=== PATIENT | male | born 1955 | race Caucasian/White ===

== ENCOUNTER 2023-02-25 09:57 | Emergency (ER) | payer MEDICARE ==
[~2023-02-25] VITALS: Ht 182.9 cm; Wt 81.6 kg
[2023-02-25 09:57] VITALS: BP_SYST 155; PULSE 67; RESP 18; TEMP 96; O2SAT 99
[2023-02-25] MEDS ORDERED: PROCHLORPERAZINE EDISYLATE 10 MG/2 ML VIAL IM ONE (10:15)
[2023-02-25] MEDS ORDERED: KETOROLAC TROMETHAMINE 60 MG/2 ML VIAL IM ONE (10:15)
[2023-02-25] MEDS ORDERED: KETOROLAC TROMETHAMINE 30 MG VIAL IVP ONE (10:30)
[2023-02-25] MEDS ORDERED: PROCHLORPERAZINE EDISYLATE 10 MG/2 ML VIAL IVP ONE (10:30)
[2023-02-25] MEDS ORDERED: RIZA-4 PO (11:08)
[2023-02-25 11:30] VITALS: BP_SYST 140; PULSE 56; RESP 17; TEMP 97.1; O2SAT 96
== END 2023-02-25 11:31 | disposition home or self-care (01) ==
LOC: SED 09:57
DX: G43.909 Migraine, unspecified, not intractable, without status migrainosus (principal); R11.10 Vomiting, unspecified; Z79.899 Other long term (current) drug therapy
CPT/HCPCS: 99285; 96374; 70450; 96375; 76376; J1885; J0780

== ENCOUNTER 2023-05-02 05:59 | Emergency (ER) | payer MEDICARE, OTHER ==
[~2023-05-02] VITALS: Ht 182.9 cm; Wt 77.1 kg
[~2023-05-02 05:59] MED LIST: RIZA-4 PO
[2023-05-02 06:09] VITALS: BP_SYST 146; PULSE 76; RESP 22; TEMP 98.1; O2SAT 97
[2023-05-02 07:17] LABS: BASOPHILS % (AUTO) 0.4 % (0.0-2.0); EOSINOPHILS # (AUTO) 0.3 K/uL (0.0-0.4); HEMATOCRIT 42.1 % (36-54); HEMOGLOBIN 14.4 g/dL (14.0-18.0); LYMPHOCYTES # (AUTO) 2.4 K/uL (1.0-5.5); LYMPHOCYTES % (AUTO) 17.5 % (20.5-51.5); MEAN CORPUSCULAR HEMOGLOBIN 32 pg (27-31); MEAN CORPUSCULAR HGB CONC 34 % (32-36); MEAN CORPUSCULAR VOLUME 93 fL (79.0-98.0); MONOCYTES # (AUTO) 1.2 K/uL (0.0-1.0); MONOCYTES % (AUTO) 8.9 % (1.7-9.3); NEUTROPHILS # (AUTO) 9.8 K/uL (1.8-7.7); NEUTROPHILS % (AUTO) 71.2 % (40.0-70.0); PLATELET COUNT (AUTO) 328 K/uL (130-430); RED BLOOD CELL COUNT(AUTO) 4.54 MIL/uL (4.2-6.2); RED CELL DISTRIBUTION WIDTH 13.7 % (9.0-15.0); WHITE BLOOD COUNT (AUTO) 13.8 K/uL (4.8-10.8)
[2023-05-02 07:34] LABS: ALANINE AMINOTRANSFERASE 22 U/L (12-78); ALBUMIN 3.5 g/dL (3.4-4.8); ANION GAP 8 (5-15); ASPARTATE AMINOTRANSFERASE 21 U/L (10-37); CALCIUM 8.7 mg/dL (8.4-11.0); CARBON DIOXIDE 26 mmol/L (23-29); CHLORIDE 107 mmol/L (98-107); CREATININE 0.95 mg/dL (0.55-1.30); GFR AFRICAN AMERICAN 102 mL/min (>90); GLUCOSE 104 mg/dL (74-106); POTASSIUM 4.4 mmol/L (3.5-5.1); SODIUM SERUM 141 mmol/L (136-145); TOTAL BILIRUBIN 0.6 mg/dL (0.0-1.0); UREA NITROGEN, BLOOD 19 mg/dL (8-21)
[2023-05-02 07:35] LABS: GFR NON AFRICAN-AMERICAN 84 mL/min (>90)
[2023-05-02 07:37] LABS: BILIRUBIN,DIRECT 0.2 mg/dL (0.0-0.3)
[2023-05-02 08:57] LABS: INR 1.1 (0.80-1.20); PROTHROMBIN TIME 11.1 SECS (9.5-12.5)
[2023-05-02] MEDS ORDERED: OMEP20CA15 PO (09:33)
[2023-05-02 09:40] VITALS: BP_SYST 150; PULSE 80; RESP 21; TEMP 98.5; O2SAT 98
== END 2023-05-02 09:40 | disposition home or self-care (01) ==
LOC: SED 05:59
DX: K20.90 Esophagitis, unspecified without bleeding (principal); R07.2 Precordial pain; Z79.899 Other long term (current) drug therapy
CPT/HCPCS: 36415; 71045; 80048; 80076; 84484; 85025; 85379; 85610-TC; 85730-TC; 93005; 99285